=== PATIENT | female | born 1990 | race American Indian/Alaskan Native ===

== ENCOUNTER 2016-09-27 20:39 | Emergency (ER) | payer BC, MEDICAID ==
[2016-09-27 20:39] VITALS: BMI 40.3
[2016-09-27 20:55] VITALS: RESP 18
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
[2016-09-27 23:53] VITALS: BP 136/70; PULSE 72; TEMP 98.8; O2SAT 99
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
--- NOTE | 2016-09-28 09:32 | RAD ---
PROCEDURE: Cervical Spine Radiographs. HISTORY: Pain. COMPARISON: None. FINDINGS: BONES: Alignment maintained. No fracture. Dens Intact. DISC SPACES: Normal. SOFT TISSUES: Normal. No prevertebral soft tissue swelling. OTHER FINDINGS: None. IMPRESSION: Normal cervical spine radiographs
== END 2016-09-27 23:53 | disposition home or self-care (01) ==
LOC: ED 20:39
DX: R51 Headache (principal); M54.2 Cervicalgia

== ENCOUNTER 2017-10-09 06:15 | Emergency (ER) | payer BC ==
[2017-10-09 06:15] VITALS: BMI 40.3
[2017-10-09 07:05] VITALS: RESP 18; O2SAT 99
--- NOTE | 2017-10-09 07:32 | ED PDOC ---
Arrival/HPI <Dajlit Peña - Last Filed: 10/09/17 07:56> - General Historian: Patient - History of Present Illness Time/Duration: 1-3 hours Symptom Onset: Gradual Symptom Course: Unchanged Activities at Onset: Rest <Mike Llanes - Last Filed: 10/09/17 09:38> - General Chief Complaint: Abdominal Pain Time Seen by Provider: 10/09/17 07:18 - History of Present Illness Narrative History of Present Illness (Text): 10/09/17 07:31 Patient is a 27 year old female with PMH of asthma who presents to Emergency department with 5-6 episodes of diarrhea over the past 4 hours. She also vomited once but denies feeling nauseated currently. She states that the diarrhea appears watery and denies bloody or black stools. She states that she has some abdominal pain while having bowel movements but denies abdominal pain at rest. She denies fevers at home, chills, CP, SOB. (Mike Llanes) Past Medical History - Provider Review Nursing Documentation Reviewed: Yes - Travel History Have you recently traveled outside [place] w/in the past 3 mons?: No - Past History Past History: No Previous - Infectious Disease Hx of Infectious Diseases: None - Tetanus Immunization Tetanus Immunization: Unknown - Past Medical History Past Medical History: No Previous - Cardiac Hx Cardiac Disorders: No - Pulmonary Hx Asthma: Yes - Neurological Hx Neurological Disorder: No - HEENT Hx HEENT Disorder: No - Renal Hx Renal Disorder: No - Endocrine/Metabolic Hx Endocrine Disorders: No - Hematological/Oncological Hx Blood Disorders: No - Integumentary Other/Comment: PILONIDAL CYST REMOVED,INCISION AND DRAINAGE ABSCESS TO BUTTOCKS AREA - Musculoskeletal/Rheumatological Hx Musculoskeletal Disorders: No Hx Falls: No - Gastrointestinal Hx Gastroesophageal Reflux: Yes - Genitourinary/Gynecological Hx Genitourinary Disorders: No - Psychiatric Hx Psychophysiologic Disorder: No Hx Depression: No Hx Emotional Abuse: No Hx Physical Abuse: No Hx Substance Use: No - Past Surgical History Past Surgical History: No Previous - Surgical History Other/Comment: PILONIDAL CYST REMOVED,I AND D OF ABSCESS TO BUTTOCKS. - Anesthesia Hx Anesthesia Reactions: No Hx Malignant Hyperthermia: No - Suicidal Assessment Feels Threatened In Home Enviroment: No <Mike Llanes - Last Filed: 10/09/17 09:38> Family/Social History - Physician Review Nursing Documentation Reviewed: Yes Family/Social History: Other (sister has asthma) Smoking Status: Never Smoked Hx Alcohol Use: No Hx Substance Use: No Hx Substance Use Treatment: No <LlanesMike barrientos - Last Filed: 10/09/17 09:38> Allergies/Home Meds <Daljit Peña - Last Filed: 10/09/17 07:56> <LlanesMike - Last Filed: 10/09/17 09:38> Allergies/Adverse Reactions: Allergies No Known Allergies Allergy (Verified 10/09/17 06:42) Review of Systems - Physician Review All systems were reviewed & negative as marked: Yes - Review of Systems Constitutional: absent: Fatigue, Fevers Eyes: absent: Vision Changes ENT: absent: Sore Throat, Rhinorrhea Respiratory: absent: SOB, Cough Cardiovascular: absent: Chest Pain, REYNOSO Gastrointestinal: Abdominal Pain (with bowel movements), Diarrhea, Vomiting ( vomited once but denies feeling nauseated). absent: Nausea, Hematochezia, Hematemesis, Food Intolerance Genitourinary Female: absent: Dysuria, Frequency Musculoskeletal: absent: Arthralgias Skin: absent: Rash, Pruritis Neurological: absent: Headache, Speech Changes Psychiatric: absent: Anxiety, Depression <Mike Llanes - Last Filed: 10/09/17 09:38> Physical Exam Vital Signs Reviewed: Yes Temperature: Afebrile Blood Pressure: Normal Pulse: Regular Respiratory Rate: Normal Appearance: Positive for: Non-Toxic, Comfortable Mental Status: Positive for: Alert and Oriented X 3 - Systems Exam Head: Present: Atraumatic, Normocephalic Pupils: Present: PERRL Extroacular Muscles: Present: EOMI Conjunctiva: Present: Normal Mouth: Present: Moist Mucous Membranes Pharnyx: Present: Normal. No: ERYTHEMA, EXUDATE Nose (External): Present: Atraumatic Neck: Present: Normal Range of Motion. No: JVD Respiratory/Chest: Present: Clear to Auscultation. No: Wheezes, Rales, Rhonchi Cardiovascular: Present: Regular Rate and Rhythm, Normal S1, S2. No: Murmurs, Rub, Gallop Abdomen: Present: Normal Bowel Sounds. No: Tenderness, Distention, Rebound, Guarding, McBurney's Point Tender, Mass/Organomegaly Upper Extremity: Present: Normal Inspection. No: Cyanosis, Edema Lower Extremity: Present: Normal Inspection. No: Edema Neurological: Present: Speech Normal Skin: Present: Warm, Dry Psychiatric: Present: Alert, Oriented x 3 <Mike Llanes - Last Filed: 10/09/17 09:38> Vital Signs Temp Pulse Resp BP Pulse Ox 10/09/17 08:28 86 18 121/67 99 10/09/17 06:55 98.4 F 93 H 18 124/70 99 Medical Decision Making <Daljit Peña - Last Filed: 10/09/17 07:56> <Mike Llanes - Last Filed: 10/09/17 09:38> ED Course and Treatment: 10/09/17 07:55 27 year old female presenting to the Emergency department complaining of abdominal pain. Patient Seen With Resident: In agreement with resident note which contains more details about the patient. Patient was seen and evaluated with resident. Came up with plan and treatment together. (Daljit Peña) 10/09/17 07:37 -Patient presenting with symptoms likely secondary to viral gastroenteritis -She denies eating any new foods or any other inciting events -Will get POC urine -With negative result, will give single dose of PO Zofran to see if this improves her symptoms 10/09/17 08:54 -Urine hcg negative -Will introduce PO challenge after zofran 10/09/17 09:34 -Patient was able to eat applesauce without feeling nauseated -She reports she feels better s/p zofran -Patient feels comfortable going home at this time and returning if she is not improved in next few days -Will discharge and give rx for PO zofran (Mike Llanes) - Medication Orders Current Medication Orders: Discontinued Medications Ondansetron HCl (Zofran Odt) 4 mg PO STAT STA Stop: 10/09/17 08:29 Last Admin: 10/09/17 08:44 Dose: 4 mg - PA / GENERAL NEUROLOGIST / Resident Statement / has reviewed & agrees with the documentation as recorded. / has examined the patient and agrees with the treatment plan. - Scribe Statement The provider has reviewed the documentation as recorded by the Scribe <Daljit Peña - Last Filed: 10/09/17 07:56> <Mike Llanes - Last Filed: 10/09/17 09:38> - Scribe Statement Mrala Segura All medical record entries made by the Scribe were at my direction and personally dictated by me. I have reviewed the chart and agree that the record accurately reflects my personal performance of the history, physical exam, medical decision making, and the department course for this patient. I have also personally directed, reviewed, and agree with the discharge instructions and disposition. (Daljit Peña) Disposition/Present on Arrival <Daljit Peña - Last Filed: 10/09/17 07:56> - Present on Arrival Any Indicators Present on Arrival: No History of DVT/PE: No History of Uncontrolled Diabetes: No Urinary Catheter: No History of Decub. Ulcer: No History Surgical Site Infection Following: None - Disposition Have Diagnosis and Disposition been Completed?: Yes Disposition Time: 09:35 Patient Plan: Discharge <Mike Llanes - Last Filed: 10/09/17 09:38> - Disposition Diagnosis: Gastroenteritis, Viral gastroenteritis Disposition: HOME/ ROUTINE Patient Problems: Current Active Problems Problem Status Onset Gastroenteritis Acute Viral gastroenteritis Acute Condition: GOOD Discharge Instructions (ExitCare): Diarrhea in Adolescents and Adults, Viral Gastroenteritis, Adult (DC), Gastroenteritis (ED) Print Language: ARMENIAN Additional Instructions: LAYLA MCELROY, thank you for letting us take care of you today. Your provider was Dr. Daljit Peña and you were treated for vomiting and diarrhea. The emergency medical care you received today was directed at your acute symptoms. If you were prescribed any medication, please fill it and take as directed. It may take several days for your symptoms to resolve. Return to the Emergency Department if your symptoms worsen, do not improve, or if you have any other problems. Please contact your doctor or call one of the physicians/clinics you have been referred to that are listed on the Patient Visit Information form that is included in your discharge packet. Bring any paperwork you were given at discharge with you along with any medications you are taking to your follow up visit. Our treatment cannot replace ongoing medical care by a primary care provider outside of the emergency department. Thank you for allowing the [facility] team to be part of your care today. If you had an X-Ray or CT scan: A Radiologist will review the ED reading if any change in treatment is needed we will contact you. If you had a blood, urine, or wound culture: It will take several days for the results, if any change in treatment is needed we will contact you. If you had an STI test: It will take 48 hours for the results. Please call after 1 week if you have not heard back. Prescriptions: Ondansetron [Zofran] 4 mg PO Q8H #12 tab Referrals: FAMILY PROVIDER,NO [Primary Care Provider] - Follow up with primary Forms: [employer] (Peruvian), WORK NOTE
[2017-10-09 09:38] VITALS: BP 118/64
[2017-10-09 09:58] VITALS: PULSE 80; TEMP 98.1
== END 2017-10-09 09:58 | disposition home or self-care (01) ==
LOC: ED 06:15
DX: A08.4 Viral intestinal infection, unspecified (principal)